=== PATIENT | female | born 1995 | race Asian ===

== ENCOUNTER 2017-06-24 18:11 | Emergency (ER) | payer OTHER ==
[2017-06-24 18:20] VITALS: RESP 16; TEMP 99.1
[2017-06-24] MEDS ORDERED: PROPARACAINE 0.5% 15 ML OPHT DROP ONE (18:29)
[2017-06-24] MEDS ORDERED: FLUORESCEIN SOD/BENOXINATE HCL 20 DROPS/ML OPHT.BTL ONE (18:30)
--- NOTE | 2017-06-24 18:56 | EDPHY ---
H & P Time Seen by Provider: 06/24/17 18:24 HPI/ROS: HPI Right eye irritation. 22-year-old female by private vehicle. She complains of intermittent right eye irritation, swelling, redness and blurry vision relative to her left eye onset in April. She wore contact lenses previously but stop wearing contact lenses in April. It sounds like she was seen by an emergency medicine medical director with this same complaint back in April and told that she had a dry eye and was prescribed lubricating drops. She presents to our emergency department now complaining of worsening pain to that right eye. There is no history of acute trauma. No history of foreign body to the right eye. She reports that when she woke up this morning it was worse. Again she has not worn contact lenses since April. ROS: Constitutional: No fever, no chills. No weakness. Eyes: As above. ENT: No sore throat. No nasal congestion or rhinorrhea. Musculoskeletal: No neck pain. Skin: No rashes. Neurological: No headache. No focal weakness or altered sensation. Past medical history: Anemia. She is not on any prescription medications. Social history: Nonsmoker. She is here by herself. No alcohol. 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 Physical Exam: General Appearance: Alert, no distress. This patient is responding to questions appropriately and in full sentences. This patient appears well- hydrated and well-nourished. Eyes: Right eye: Pupil is round and reactive at 3-2 mm. No lid edema, erythema or injection. Left eye exam: Parikh lamp exam with fluorescein staining; no Sita's sign, she has a circular corneal abrasion with early ulceration at the 6:00 to 8:00 position, it covers this portion of the iris and intrudes partially into the mid dilated pupil. Slit-lamp exam; no hypopyon, no hyphema, anterior chamber is deep and clear, no cell/flare. The upper and lower lids were everted with no gross evidence of foreign body. Neurological: Motor sensory function is grossly intact. Cranial nerves are normal. Gait is normal. Skin: Warm and dry, no rashes. Musculoskeletal: Neck is supple and nontender. Extremities are symmetrical. All joints range without pain or impingement. Psychiatric: No agitation. No depression. Database: EKG: Imaging: Procedures: Emergency department course: Vital signs reviewed and are normal. Proparacaine drops were administered. She had good relief of her pain with these drops. She has no pain on pupil constriction. This is indicative of a superficial process. We started her ofloxacin ophthalmic eyedrops which were given in the emergency department. Ophthalmology was paged at 6:55 p.m. To arrange for close follow-up. 7:00 p.m., I spoke with on-call machine feeder raw stock Dr. Asim Joseph. He agrees with above management. He will see this patient in his office at [facility] at 10:00 a.m. Tomorrow morning. The patient was instructed on dosing of ofloxacin drops. She was instructed in detail on her follow-up with Dr. Joseph. She will be able to make this appointment. Return to emergency department precautions were reviewed with her. All of these questions were answered. She was discharged in good condition. Differential Diagnosis: The differential diagnosis on this patient includes but is not limited to corneal ulceration, corneal abrasion. Ocular foreign body, iritis, uveitis, UV keratitis, herpetic etiology, traumatic etiology unlikely. This represents a partial list of diagnoses considered. These considerations are based on history , physical exam, past history, reassessment and diagnostic testing. Smoking Status: Never smoked Constitutional: Initial Vital Signs Temperature (C) 37.3 C 06/24/17 18:16 Heart Rate 71 06/24/17 18:16 Respiratory Rate 16 06/24/17 18:16 Blood Pressure 123/82 H 06/24/17 18:16 O2 Sat (%) 97 06/24/17 18:16 O2 Delivery Mode Room Air Allergies/Adverse Reactions: No Known Allergies Allergy (Unverified 06/24/17 18:21) Home Medications: Medication Instructions Recorded NK [No Known Home Meds] 06/24/17 Medical Decision Making - Data Points Medications Given: Discontinued Medications Ofloxacin (Ocuflox 0.3% Opht Drops Prepack) 1 btl TAKEHOME EDNOW ONE Stop: 06/24/17 19:02 Last Admin: 06/24/17 19:17 Dose: 1 btl Departure - Departure Disposition: Home, Routine, Self-Care Clinical Impression: Corneal abrasion, right, Corneal ulcer of right eye Condition: Good Instructions: Ofloxacin (Into the eye), Corneal Abrasion (ED) Additional Instructions: Read and follow provided instructions. Follow-up with Dr. Asim Joseph of the ophthalmology service at [facility] which is located just inside the main doors of [facility] off of [facility] just [place] of [facility]. He will see you at 10:00 a.m. tomorrow morning, June 25. Ofloxacin ophthalmic drops: Administer 1-2 drops to your right eye every 4-6 hours while awake for the next 5 days. Return to the emergency department for worsening pain, loss of vision or other serious concerns. Referrals: [facility] [Outside] - As per Instructions Asim Joseph MD [Medical Doctor] - As per Instructions
[2017-06-24] MEDS ORDERED: OFLOXACIN 0.3% SOLN PREPACK OPHT.BTL TAKEHOME ONE (19:01)
[2017-06-24 19:30] VITALS: BP 138/79; PULSE 73; O2SAT 100
[2017-06-24] MEDS ORDERED: OFLOXACIN 0.3% 5ML OPHT DROPS RTEYE SCH (22:00)
== END 2017-06-24 19:23 | disposition home or self-care (01) ==
LOC: CED 18:11
DX: S05.01XA Injury of conjunctiva and corneal abrasion without foreign body, right eye, initial encounter (principal); H16.001 Unspecified corneal ulcer, right eye; X58.XXXA Exposure to other specified factors, initial encounter